=== PATIENT | female | born 1980 | race Caucasian/White ===

== ENCOUNTER 2023-05-14 10:30 | Inpatient (IN) | payer OTHER ==
[~2023-05-14] VITALS: Ht 160 cm; Wt 61.2 kg
[2023-05-14 07:27] LABS: HEMATOCRIT 34.9 % (36.0-45.00); HEMOGLOBIN 12.1 g/dL (12.0-15.00); MEAN CELL VOLUME 87.9 fL (80.00-100.00); MEAN CORPUSCULAR HEMOGLOBIN 30.5 pg (27.00-32.0); MEAN CORPUSCULAR HGB CONC 34.7 g/dl (32.0-36.0); PLATELET COUNT 256 K/uL (150-450); RED BLOOD COUNT 3.97 M/uL (4.00-6.00); RED CELL DISTRIBUTION WIDTH 12.9 % (11.5-14.5)
[2023-05-14 07:59] LABS: INR 0.98; PARTIAL THROMBOPLASTIN TIME 28.1 SECONDS (22.0-34.0); PROTHROMBIN TIME 10.3 SECONDS (9.0-11.5)
[2023-05-14 08:35] LABS: ALBUMIN 3.6 gm/dL (3.4-5.0); BILIRUBIN TOTAL 0.7 mg/dL (0.3-1.2); CALCIUM 8.7 mg/dL (8.5-10.1); CREATININE SERUM 0.7 mg/dL (0.55-1.02); GFR 91.33; GLOBULINA 3.4 G/DL (2.4-3.5); POTASSIUM 3.86 mEq/L (3.5-5.1)
[2023-05-19] MEDS ORDERED: CEFAZOLIN SODIUM 1,000 MG VIAL ONE (10:51)
[2023-05-19] MEDS ORDERED: POVIDONE-IODINE 118 ML BOTT TOP ONE ×2 (11:35→12:45)
[2023-05-19] MEDS ORDERED: CEFAZOLIN SODIUM 1,000 MG VIAL IV ONE (12:45)
[2023-05-19] MEDS ORDERED: KETOROLAC TROMETHAMINE 30 MG VIAL IV SCH (13:40)
[2023-05-19] MEDS ORDERED: MORPHINE SULFATE 4 MG/ML CARTRIDGE IV PRN (13:45)
[2023-05-19] MEDS ORDERED: RINGERS SOLUTION,LACTATED 1,000 ML IV SCH (13:45)
[2023-05-19] MEDS ORDERED: KETOROLAC TROMETHAMINE 30 MG VIAL ONE (15:12)
[2023-05-20] MEDS ORDERED: SIMETHICONE 125 MG CAPSULE PO SCH (01:00)
[2023-05-20 07:03] LABS: HEMATOCRIT 25.6 % (36.0-45.00); MEAN CELL VOLUME 87.9 fL (80.00-100.00); MEAN CORPUSCULAR HEMOGLOBIN 31.2 pg (27.00-32.0); MEAN CORPUSCULAR HGB CONC 35.5 g/dl (32.0-36.0); PLATELET COUNT 191 K/uL (150-450); RED BLOOD COUNT 2.91 M/uL (4.00-6.00)
[2023-05-20 07:08] LABS: HEMOGLOBIN 9.1 g/dL (12.0-15.00)
[2023-05-20 07:12] LABS: ALBUMIN 2.7 gm/dL (3.4-5.0); BILIRUBIN TOTAL 1.09 mg/dL (0.3-1.2); CREATININE SERUM 0.53 mg/dL (0.55-1.02); GFR 125.9; GLOBULINA 2.5 G/DL (2.4-3.5); POTASSIUM 3.9 mEq/L (3.5-5.1); TOTAL PROTEIN 5.2 gm/dL (6.4-8.2)
[2023-05-20] MEDS ORDERED: DOCUSATE CALCIUM 240 MG CAPSULE PO SCH (09:00)
== END 2023-05-20 09:26 | disposition home or self-care (01) | DRG 743 ==
LOC: SURH 05-19 07:00 → O/R 05-19 08:05 → OB/GYN 05-19 08:05 → SURH 05-19 08:51 → OB/GYN 05-19 13:55 → SURH 05-19 17:49 → OB/GYN 05-20 09:26
PROVIDERS: ADMIT Obstetrics & Gynecology; ATTEND Obstetrics & Gynecology
PROC: 0UT74ZZ Resection of Bilateral Fallopian Tubes, Percutaneous Endoscopic Approach (ICD-10-PCS; 2023-05-19)
PROC: 0UT94ZZ Resection of Uterus, Percutaneous Endoscopic Approach (ICD-10-PCS; principal; 2023-05-19 07:00)
DX: D25.2 Subserosal leiomyoma of uterus (principal); D25.0 Submucous leiomyoma of uterus; N72 Inflammatory disease of cervix uteri; N80.03 Adenomyosis of the uterus; Z20.822 Contact with and (suspected) exposure to COVID-19